=== PATIENT | female | born 1950 | race Caucasian/White ===

== ENCOUNTER 2020-04-14 09:20 | Outpatient (CLI) | payer MEDICARE ==
--- NOTE | 2020-04-14 10:56 | MMO ---
Bilateral MAMMO Bilat Screen [facility]UAN. CLINICAL HISTORY: Patient is 69 years old and is seen for screening. The patient has no family history of breast cancer. The patient has no personal history of cancer. VIEWS: The views performed were: bilateral craniocaudal with tomosynthesis and bilateral mediolateral oblique with tomosynthesis. FILMS COMPARED: The present examination has been compared to prior imaging studies performed at [facility] on 10/12/2015 and 11/09/2015, and at [facility] on 05/24/2010. This study has been interpreted with the assistance of computer-aided detection. MAMMOGRAM FINDINGS: There are scattered fibroglandular densities. Finding 1: There are stable benign appearing calcifications seen in both breasts. Finding 2: There are stable benign appearing densities seen in both breasts. There are no suspicious masses, suspicious calcifications, or new areas of architectural distortion. IMPRESSION: THERE IS NO MAMMOGRAPHIC EVIDENCE OF MALIGNANCY. A ROUTINE FOLLOW-UP MAMMOGRAM IN 1 YEAR IS RECOMMENDED. THE RESULTS OF THIS EXAM WERE SENT TO THE PATIENT. ACR BI-RADS Category 2 - Benign finding MAMMOGRAPHY NOTE: 1. A negative mammogram report should not delay a biopsy if a dominant of clinically suspicious mass is present. 2. Approximately 10% to 15% of breast cancers are not detected by mammography. 3. Adenosis and dense breasts may obscure an underlying neoplasm. Reported by: OLAYINKA VELAZQUEZ MD Electonically Signed: [id number]
== END 2020-04-14 09:21 | disposition home or self-care (01) ==
LOC: BICMAMMO 09:20
PROVIDERS: ATTEND Family Medicine
DX: Z12.31 Encounter for screening mammogram for malignant neoplasm of breast (principal)
CPT/HCPCS: 77063; 77067

== ENCOUNTER 2020-05-05 06:29 | Outpatient (CLI) | payer MEDICARE ==
[2020-05-05 11:48] LABS: Mean Corpuscular HGB CONC 32.6 G/DL (32.0-36.0); Mean Corpuscular Hemoglobin 28.5 PG (27.0-33.0); Mean Corpuscular Volume 87.5 fl (80.0-100.0); Mean Platelet Volume 10.1 fl (7.4-10.4); Platelet Count 323 10x3/uL (130-400); RBC Distribution Width 14.8 % (11.5-14.5); Red Blood Cell (RBC) Count 5.26 10x6/uL (3.90-5.20); White Blood Cell (WBC) Count 10.5 10x3/uL (4.5-11.0)
[2020-05-05 12:12] LABS: Prothrombin Time 10.1 sec (9.5-12.1)
[2020-05-05 12:20] LABS: Anion Gap 17 mmol/L (10-20); BUN (Urea Nitrogen) 18 mg/dL (9.8-20.1); Calc. Creatinine Clearance 0 mL/min (70-130); Calcium 8.9 mg/dL (7.8-10.44); Carbon Dioxide 24 mmol/L (23-31); Chloride 100 mmol/L (98-107); Glucose 95 mg/dL (80-115); Potassium 4.3 mmol/L (3.5-5.1); Sodium 137 mmol/L (136-145)
[2020-05-05 13:13] LABS: Bilirubin Neg (Negative); Blood, Urine 25 (Negative); Clarity Clear (Clear); Glucose, Urine (Dipstick) Normal (Negative); Ketone, Urine Negative (Negative); Leukocyte Negative (Negative); Nitrite Negative (Negative); Protein, Urine (Dipstick) 15 mg/dl (Neg-Trace); Urobilinogen Normal mg/dL (Less than 2)
[2020-05-05 13:49] LABS: Bacteria/HPF Rare-Few HPF (None Seen)
--- NOTE | 2020-05-05 16:14 | EKG ---
Test Reason : Blood Pressure : / mmHG Vent. Rate : 085 BPM Atrial Rate : 085 BPM P-R Int : 120 ms QRS Dur : 096 ms QT Int : 386 ms P-R-T Axes : 056 049 096 degrees QTc Int : 459 ms Normal sinus rhythm Nonspecific ST-T changes Poor anterior R wave progression No previous ECGs available Confirmed by DR. Erika NOYOLA ([id number]) on 05/05/2020 4:14:08 PM Referred By: PANDA Confirmed By:DR. Erika NOYOLA
[2020-05-05 17:12] LABS: SARS-CoV-2 MS2 Positive; SARS-CoV-2 N Gene Negative; SARS-CoV-2 S Gene Negative; SARS-CoV-2 by NAA Not Detected (NotDetected); SARS-CoV-2 orf1ab Negative
== END 2020-05-05 06:30 | disposition home or self-care (01) ==
LOC: LABBT 06:29
PROVIDERS: ATTEND Urology
DX: Z01.818 Encounter for other preprocedural examination (principal); Z20.828 Contact with and (suspected) exposure to other viral communicable diseases; N20.0 Calculus of kidney; R31.29 Other microscopic hematuria; N39.46 Mixed incontinence; N28.1 Cyst of kidney, acquired
CPT/HCPCS: 80048; 81001; 85027; 85610; 85730; 87086; 93005; U0003; 87635; 93010

== ENCOUNTER 2020-05-10 08:42 | Day surgery (SDC) | payer MEDICARE ==
[2020-05-09 11:06] VITALS: BMI 34.9
[2020-05-10] MEDS ORDERED: PHENYLEPHRINE-NS 100 MCG/ML 10 ML SYRINGE ONE (09:29)
[2020-05-10] MEDS ORDERED: PROPOFOL 200 MG/20 ML VIAL ONE (09:29)
[2020-05-10] MEDS ORDERED: Rocuronium Bromide 10 MG/ML (10ML VIAL) ONE (09:29)
[2020-05-10] MEDS ORDERED: Dexamethasone 20 MG/5 ML VIAL ONE (09:29)
[2020-05-10] MEDS ORDERED: Glycopyrrolate 0.2 MG/ML 5 ML SYRINGE ONE (09:29)
[2020-05-10] MEDS ORDERED: Ondansetron PF 4 MG/2 ML Vial ONE (09:29)
[2020-05-10] MEDS ORDERED: Ketorolac Tromethamine 30 MG/ML VIAL ONE (09:29)
[2020-05-10] MEDS ORDERED: ePHEDrine 50 MG/ML VIAL ONE (09:29)
[2020-05-10] MEDS ORDERED: Lidocaine 1% PF 5 ML VIAL ONE (09:29)
[2020-05-10] MEDS ORDERED: Levofloxacin 500 mg/D5W 100 ml Premix Bag ONE (10:39)
[2020-05-10] MEDS ORDERED: Fentanyl 100 MCG/2 ML VIAL ONE ×2 (11:42→14:02)
[2020-05-10] MEDS ORDERED: Lidocaine 2% Jelly 5 ML TUBE ONE (11:42)
--- NOTE | 2020-05-10 12:03 | RAD ---
KUB: DATE: 05/10/2020 HISTORY: Renal calculi. Preop. COMPARISON: CT examination of 04/11/2020. FINDINGS: Mass density related to the large right renal cyst is again demonstrated. Bowel gas does obscure some detail. It is difficult to definitively demonstrate the renal calculi on the left on this examinatio n. There is a calcification overlying the lower pole of the right kidney. No definite ureteral calcul i are seen. There are some calcifications to the left side of the pelvis. IMPRESSION: 1. Large lower pole right renal cyst. Calcification seen along the superior margin of this cyst. 2. The left-sided renal calculi noted on CT are not definitively visualized on this study. POS: JORDY
[2020-05-10] MEDS ORDERED: Oxybutynin 5 MG TAB ONE (14:26)
[2020-05-10] MEDS ORDERED: Phenazopyridine HCl 100 MG TAB ONE (14:26)
--- NOTE | 2020-05-10 18:47 | OP ---
DATE OF PROCEDURE: 05/10/2020 PRIMARY CARE PHYSICIAN: Seth Holland MD PREOPERATIVE DIAGNOSES: A 69-year-old female with history of bilateral renal calculi: 1. Left renal stone burden 8 to 9 mm left mid pole, 9 to 10 mm lower pole calculi. 2. Right nonobstructing renal calculi, right mid pole adjacent to a mid pole of 3 cm renal cyst about 8 to 10 mm. 3. Right lower pole large 8 x 7 cm renal cyst with adjacent tiny renal calculi punctate x1 to 2. POSTOPERATIVE DIAGNOSES: A 69-year-old female with history of bilateral renal calculi: 1. Left renal stone burden 8 to 9 mm left mid pole, 9 to 10 mm lower pole calculi. 2. Right nonobstructing renal calculi, right mid pole adjacent to a mid pole of 3 cm renal cyst about 8 to 10 mm. 3. Right lower pole large 8 x 7 cm renal cyst with adjacent tiny renal calculi punctate x1 to 2. PROCEDURES PERFORMED: Cystoscopy, left retrograde pyelogram, 6 x 26 double-J ureteral stent with distal tail in situ, balloon dilatation of the distal ureter, ureteroscopy, pyeloscopy, laser lithotripsy of multiple renal calculi, basket extraction of stone fragments, modifier 25 due to large stone burden as the stone does appear larger on pyeloscopy approaching about 1 to 1.2 cm on pyeloscopy, basket extraction of stone debris. ANESTHESIA: General. COMPLICATIONS: None apparent. DISPOSITION: To recovery room in stable condition. IV FLUIDS: 1 L. ESTIMATED BLOOD LOSS: min INTRAOPERATIVE FINDINGS: As above. Large left mid and lower pole renal calculi. In the lower pole, there are tiny punctate stone debris adjacent to the large left lower pole stone. These are about 2 mm in size, the larger stone burden as above. DESCRIPTION OF PROCEDURE: After an informed consent was signed, the patient was taken to the operating room, placed in a dorsal lithotomy position with the genital area prepped and draped in the usual surgical sterile fashion. A 21-Yemeni cystoscope was utilized for cystoscopy, which demonstrated normal urethra and bladder. There was no evidence of bladder stone. UOs were normal orthotopic in position. At this time, an open-ended catheter was utilized to intubate the left UO, this demonstrated no evidence of hydronephrosis. The stones are difficult to see on fluoroscopy and preop KUB. A 0.035 Sensor wire was placed into the left upper pole and we dilated the distal intramural ureter with a 4 cm 12-Yemeni balloon dilator. We sequentially dilated more proximally x1. At this time, a 10-Yemeni dual-lumen access sheath was placed into the left ureter, a second safety wire of 0.035 Super Stiff was placed into the left upper pole. With the dual-lumen access sheath removed, I was able to pass a 12 x 14-Yemeni navigator to the level of the proximal ureter without any difficulty. A flexible ureteroscope was then subsequently passed with the working wire removed. A safety wire remained in situ. Flexible pyeloscopy demonstrated large stone in the left mid pole anterior consistent with CT, left lower pole stone burden. Both stones appeared much larger than on CT. In addition, next to the left lower pole stone, there were tiny pebble-like stones, which were about 2 mm in size. There were about 4 or 5 of these adjacent to the large stone burden. We transitioned to a 273 micron ball-tip laser fiber using 1.0 joules. We laser lithotripsied both stone moieties in a systematic manner. Most of the stone debris were dust-like debris. At the end of the procedure, multiple fragmented debris migrated into the lower mid and upper pole. Using a Zero Tip Nitinol basket, we basket extracted all those that were amendable to be basket extracted. I did spend a significant amount of time basket extracting the debris, as there were numerous. At the end of the procedure, what remained in situ were tiny dust-like debris that was not of clinical significance in which she would most likely pass on her own. None were left. There were amendable to be further basketed or laser lithotripsy. We surveyed the ureter, which demonstrated no evidence of ureteral mucosa trauma nor stone nidus of concern. The navigator was completely removed and a 6 x 26 double-J ureteral stent was passed without difficulty with distal tail left in situ. The safety wire was then subsequently removed and bladder completely emptied. Her postop medication was sent to her pharmacy, I will see her next for cysto, stent pull under local. Job ID: [id number] [facility]
--- NOTE | 2020-05-10 18:50 | RAD ---
RETROGRADE IVP: 05/10/20 COMPARISON: CT abdomen/pelvis 04/11/20 and KUB 05/10/20. HISTORY: Renal calculi. FINDINGS/IMPRESSION: Multiple limited fluoroscopic views from a retrograde IVP was submitted for interpretation. Contrast is seen in the left renal collecting system. There is no evidence of hydronephrosis. No obvious filli ng defects are seen. A wire is eventually placed in the left renal collecting system as well as a bal loon device in the distal aspect of the left ureter. POS: EAA
== END 2020-05-10 16:40 | disposition home or self-care (01) ==
LOC: SDC 08:42
PROVIDERS: ATTEND Urology
PROC: 0TC48ZZ Extirpation of Matter from Left Kidney Pelvis, Via Natural or Artificial Opening Endoscopic (ICD-10-PCS; principal; 2020-05-10)
PROC: 0T778DZ Dilation of Left Ureter with Intraluminal Device, Via Natural or Artificial Opening Endoscopic (ICD-10-PCS; 2020-05-10)
DX: N20.0 Calculus of kidney (principal); N28.1 Cyst of kidney, acquired; N39.46 Mixed incontinence; I10 Essential (primary) hypertension; F32.9 Major depressive disorder, single episode, unspecified; G47.33 Obstructive sleep apnea (adult) (pediatric); Z79.82 Long term (current) use of aspirin; Z79.899 Other long term (current) drug therapy; Z88.0 Allergy status to penicillin
CPT/HCPCS: 74018; 74420; 82365; 88300; J1100; J1885; J1956; J2405; J2704; J3010; J3490

== ENCOUNTER 2021-03-01 11:50 | Outpatient (CLI) | payer MEDICARE, OTHER ==
[2021-03-01 14:40] LABS: Hemoglobin 14.3 g/dL (12.0-15.5); Mean Corpuscular HGB CONC 31.8 g/dL (32.0-36.0); Mean Corpuscular Hemoglobin 28.9 pg (27.0-33.0); Mean Corpuscular Volume 90.9 fl (81.6-98.3); Mean Platelet Volume 10.1 fl (7.4-10.4); Platelet Count 353 10x3/uL (150-450); RBC Distribution Width 13.7 % (11.5-14.5); Red Blood Cell (RBC) Count 4.95 10x6/uL (3.90-5.03); White Blood Cell (WBC) Count 10.8 10x3/uL (3.5-10.5)
[2021-03-01 15:00] LABS: INR-International Normal Ratio 0.9; Prothrombin Time 9.9 sec (9.5-12.1)
[2021-03-01 15:18] LABS: Anion Gap 14 mmol/L (10-20); BUN (Urea Nitrogen) 17 mg/dL (9.8-20.1); Calc. Creatinine Clearance 0 mL/min (70-130); Calcium 9.4 mg/dL (7.8-10.44); Carbon Dioxide 30 mmol/L (23-31); Chloride 101 mmol/L (98-107); Glucose 87 mg/dL (80-115); Potassium 3.9 mmol/L (3.5-5.1); Sodium 141 mmol/L (136-145)
[2021-03-02 08:52] LABS: SARS-CoV-2 PCR by NAA Not Detected (NotDetected)
== END 2021-03-01 11:51 | disposition home or self-care (01) ==
LOC: LABBT 11:50
PROVIDERS: ATTEND Internal Medicine Cardiovascular Disease
DX: Z01.812 Encounter for preprocedural laboratory examination (principal); I48.0 Paroxysmal atrial fibrillation; Z20.822 Contact with and (suspected) exposure to COVID-19
CPT/HCPCS: 80048; 85027; 85610; U0003; U0005

== ENCOUNTER 2021-03-06 06:28 | Day surgery (SDC) | payer MEDICARE, OTHER ==
[2021-03-02 12:40] VITALS: BMI 33.6
[2021-03-06] MEDS ORDERED: Fentanyl 100 MCG/2 ML VIAL ONE ×2 (10:03→15:07)
[2021-03-06] MEDS ORDERED: Phenylephrine 10 MG/ML VIAL ONE (10:03)
[2021-03-06] MEDS ORDERED: Heparin 10,000 UNITS/ 10 ML VIAL ONE (10:05)
[2021-03-06] MEDS ORDERED: Heparin 25,000 units/D5W 500 ML ONE (10:05)
[2021-03-06] MEDS ORDERED: Midazolam HCl 2 mg/2 ml Vial ONE (10:24)
[2021-03-06] MEDS ORDERED: Lidocaine 1% PF 5 ML VIAL ONE (10:38)
[2021-03-06] MEDS ORDERED: Rocuronium Bromide 10 MG/ML (10ML VIAL) ONE (10:38)
[2021-03-06] MEDS ORDERED: Dexamethasone 20 MG/5 ML VIAL ONE (10:38)
[2021-03-06] MEDS ORDERED: PROPOFOL 200 MG/20 ML VIAL ONE (10:38)
[2021-03-06] MEDS ORDERED: Protamine Sulfate 50 MG/5 ML VIAL ONE (12:04)
[2021-03-06] MEDS ORDERED: HYDROcodone/Acetaminophen 5/325 mg Tablet ONE (18:24)
== END 2021-03-06 18:46 | disposition home or self-care (01) ==
LOC: CCL 06:28
PROVIDERS: ATTEND Internal Medicine Cardiovascular Disease
PROC: B246ZZ4 Ultrasonography of Right and Left Heart, Transesophageal (ICD-10-PCS; principal; 2021-03-06)
PROC: B24CZZ4 Ultrasonography of Pericardium, Transesophageal (ICD-10-PCS; 2021-03-06)
PROC: B244ZZ3 Ultrasonography of Right Heart, Intravascular (ICD-10-PCS; 2021-03-06)
PROC: 02583ZZ Destruction of Conduction Mechanism, Percutaneous Approach (ICD-10-PCS; 2021-03-06)
PROC: 02K83ZZ Map Conduction Mechanism, Percutaneous Approach (ICD-10-PCS; 2021-03-06)
DX: I48.0 Paroxysmal atrial fibrillation (principal); I34.0 Nonrheumatic mitral (valve) insufficiency; I10 Essential (primary) hypertension; I42.0 Dilated cardiomyopathy; Z79.01 Long term (current) use of anticoagulants; Z79.899 Other long term (current) drug therapy; Z88.0 Allergy status to penicillin
CPT/HCPCS: 85347; 93005; 93312; 93613; 93655; 93656; 93662; C1731; C1732; C1759; C1894; C2630; J1100; J1644; J2250; J2370; J2704; J2720; J3010